=== PATIENT | male | born 1970 | race Caucasian/White ===

== ENCOUNTER 2017-08-16 22:55 | Emergency (ER) | payer OTHER ==
[~2017-08-16] VITALS: Ht 172.7 cm; Wt 72.0 kg
[~2017-08-16 22:55] MED LIST: DICL50TA3 PO; METH750T2 PO
[2017-08-16 23:26] VITALS: BP 144/85; PULSE 74; RESP 18; TEMP 97.4; O2SAT 98
[2017-08-17] MEDS ORDERED: ceFAZolin 2 GM PREMIX 50 ML IV ONE
[2017-08-17] MEDS ORDERED: DIPHTH/TETANUS/ACEL PERTUSSIS (BOOSTER) 0.5 ML VIAL/PFS IM ONE
[2017-08-17] MEDS ORDERED: PROPARACAINE HCL 0.5% OPHT SOLN 15 ML BTL EACH EYE ONE
--- NOTE | 2017-08-17 00:19 | PD ---
HPI Chief Complaint: Eye Problems/Injury Time Seen by Provider: 23:54 Travel History International Travel<30 days: No Contact w/Intl Traveler<30days: No Traveled to known affect area: No History of Present Illness HPI The patient is a 47 year old male who presents to the [facility] emergency department with a history of right eye pain that began approximately an hour prior to arrival. The patient reports that he was digging around in a storage unit when a car antenna hit him in the eye. The patient reports that the current tendon was in a box and bent over. He reports that the other box was moved releasing the car antenna which swung back into his right eye. The patient reports having no vision in the center of his visual field and only light surrounding the darkness in the center of his visual field. The patient has reading glasses on. The patient also has contacts in. The patient reports that his last eye examination was done at [facility] approximately a year ago. He denies having an panel cutter. Patient is unsure when his tetanus was last updated. He denies having any thick drainage from his eye. He reports that initially there was some tearing. He reports that there is pain in the eye. He denies having any other injuries. On review of systems otherwise, the patient denies having any known recent fevers, cough or congestion, neck pain, chest pain, shortness of breath, abdominal pain, vomiting , diarrhea, urinary symptoms, or neurologic symptoms. PFSH Past Medical History Narrative Medical The patient's past medical history is reportedly none. Medical History: Denies Significant Hx Diminished Hearing: No Tetanus Vaccination: < 5 Years Influenza Vaccination: No Past Surgical History Narrative Surgical The patient's past surgical history is reportedly none. Surgical History: No Previous Surgery Social History Alcohol Use: No Tobacco Use: No Substance Use: No Allergies-Medications (Allergen,Severity, Reaction): Coded Allergies: No Known Allergies (Verified Allergy, Unknown, 08/17/17) Reported Meds & Prescriptions Reported Meds & Active Scripts Active Hydrocodone-Acetaminophen 5-325 mg Tab 1 Tab PO Q6H PRN Tobrex Opth Drops (Tobramycin Opth Drops) 0.3 % Soln 2 Drop RIGHT EYE Q4H Methocarbamol 750 Mg Tab 750 Mg PO QID 2 tabs QID for 2 days, then 1 tab QID thereafter Diclofenac Sodium Dr (Diclofenac Sodium) 50 Mg Tab 50 Mg PO BID Review of Systems Except as stated in HPI: all other systems reviewed are Neg General / Constitutional: No: Fever Eyes: Positive: Pain, Blind Spots, Visual changes HENT: No: Headaches Cardiovascular: No: Chest Pain or Discomfort Respiratory: No: Shortness of Breath Gastrointestinal: No: Nausea, Vomiting, Diarrhea, Abdominal Pain Genitourinary: No: Dysuria Musculoskeletal: No: Pain Skin: No Rash Neurologic: No: Weakness Psychiatric: No: Depression Endocrine: No: Polydipsia Hematologic/Lymphatic: No: Easy Bruising Physical Exam Narrative General: The patient is a well-developed well-nourished male in no acute distress. Head and Neck exam: Head is normocephalic atraumatic. Eyes: EOMI, pupils are equal round and reactive to light. The patient is noted to have a subconjunctival hemorrhage along the temporal aspect of the right eye. The patient is noted to have sensitivity of light to the right eye. The patient has contacts in place in bilateral eyes which she was able to remove. The patient had a funduscopic examination done and no obvious retinal hemorrhage or tear was visualized. Fluorescein testing was done of the eye after the patient had anesthetic ophthalmic solution applied in the right eye. The patient was noted to have a corneal abrasion in the center of the area where the subconjunctival hemorrhage is noted. The patient's eye pressure on the right was noted to be slightly elevated at 27. Nose: Midline septum with pink mucous membranes Mouth: Dentition unremarkable. Moist mucus membranes. Posterior oropharynx is not erythematous. No tonsillar hypertrophy. Uvula midline. Airway patent. Neck: No palpable lymphadenopathy. No nuchal rigidity. No thyromegaly. Cardiovascular: Regular rate and rhythm without murmurs, gallops, or rubs. No pulse deficit to the extremities. Lungs: Clear to auscultation bilaterally. No wheezes, rhonchi, or rales. Abdomen: Soft, without tenderness to palpation in all 4 quadrants of the abdomen. No guarding, rebound, or rigidity. Negative Alderson sign. Extremities: No clubbing, cyanosis, or edema. 2+ pulses in all 4 extremities. Back: No spinous process tenderness to palpation. No costovertebral angle tenderness to palpation. Neurologic Exam: Cranial nerves 2-12 were intact on exam. Strength is 5/5 in all 4 extremities. No sensory deficits noted. No dysdiadochokinesis. Good finger to nose and Heel to stoner bilaterally. Skin Exam: No rash noted. Intact skin that is warm and dry. Data Data Last Documented VS Vital Signs Date Time Temp Pulse Resp B/P (MAP) Pulse Ox O2 Delivery O2 Flow Rate FiO2 08/17/17 00:55 15 08/16/17 23:26 97.4 74 144/85 (104) 98 Orders Orders Complete Blood Count With Diff (08/16/17 23:55) Basic Metabolic Panel (Bmp) (08/16/17 23:55) Prothrombin Time / Inr (Pt) (08/16/17 23:55) Act Partial Throm Time (Ptt) (08/16/17 23:55) Iv Access Insert/Monitor (08/16/17 23:55) Ecg Monitoring (08/16/17 23:55) Oximetry (08/16/17 23:55) Cefazolin 2 Gm Premix (Ancef 2 Gm Premix (08/17/17 00:00) Fxnq-Wmr-Vfidwi (Booster) Inj (Boostrix (08/17/17 00:00) Proparacaine 0.5% Opth Soln (Alcaine 0.5 (08/17/17 00:00) Ct Facial Bones W/O Iv Cont (08/17/17 00:19) Morphine Inj (Morphine Inj) (08/17/17 01:15) Ondansetron Inj (Zofran Inj) (08/17/17 01:15) Labs Laboratory Tests Test 08/17/17 00:26 White Blood Count 8.3 TH/MM3 Red Blood Count 5.46 MIL/MM3 Hemoglobin 16.3 GM/DL Hematocrit 47.0 % Mean Corpuscular Volume 86.0 FL Mean Corpuscular Hemoglobin 29.8 PG Mean Corpuscular Hemoglobin Concent 34.7 % Red Cell Distribution Width 12.4 % Platelet Count 221 TH/MM3 Mean Platelet Volume 8.8 FL Neutrophils (%) (Auto) 62.4 % Lymphocytes (%) (Auto) 23.0 % Monocytes (%) (Auto) 12.4 % Eosinophils (%) (Auto) 1.7 % Basophils (%) (Auto) 0.5 % Neutrophils # (Auto) 5.2 TH/MM3 Lymphocytes # (Auto) 1.9 TH/MM3 Monocytes # (Auto) 1.0 TH/MM3 Eosinophils # (Auto) 0.1 TH/MM3 Basophils # (Auto) 0.0 TH/MM3 CBC Comment DIFF FINAL Differential Comment Prothrombin Time 10.7 SEC Prothromb Time International Ratio 1.1 RATIO Activated Partial Thromboplast Time 23.6 SEC Blood Urea Nitrogen 12 MG/DL Creatinine 1.09 MG/DL Random Glucose 96 MG/DL Calcium Level 9.0 MG/DL Sodium Level 140 MEQ/L Potassium Level 4.1 MEQ/L Chloride Level 104 MEQ/L Carbon Dioxide Level 28.9 MEQ/L Anion Gap 7 MEQ/L Estimat Glomerular Filtration Rate 72 ML/MIN MDM Medical Decision Making Medical Screen Exam Complete: Yes Emergency Medical Condition: Yes Medical Record Reviewed: Yes Interpretation(s) Last Impressions Maxillofacial CT 08/17/17 0019 Signed Impressions: Service Date/Time: Thursday, August 17, 2017 00:19 - CONCLUSION: Negative exam. No fractures. Both globes are intact. Reed Paul MD Differential Diagnosis Globe rupture, versus orbital fracture, versus retinal hemorrhage, versus retinal tear, versus corneal abrasion, versus subconjunctival hemorrhage, versus hyphema, versus traumatic optic neuropathy. Narrative Course During the course of the patient's emergency department visit, the patient's history, examination, and differential diagnosis were reviewed with the patient. The patient was placed on a monitor and storage bin tender with oximetry and frequent blood pressure monitoring. The patient had IV access obtained and blood work sent for analysis. The patient was able to remove his contacts. The patient was initially provided morphine for pain, Zofran for nausea. The patient's tetanus was updated. The patient was given Ancef 2 g IV. The patient's laboratory studies were reviewed and remarkable for a white count of 8.3, hemoglobin 16.3, platelets 221 with 12.4- monocytes, basic metabolic profile is unremarkable. PT 10.7, PTT 23.6. Radiology studies were reviewed and remarkable for CT scan of the facial bones showing that the facial bones are intact, globes are intact. No acute abnormality noted. The patient's case including history, pertinent physical examination findings, and laboratory studies were discussed with Dr. Martínez, the panel cutter at [facility]. He recommended that the patient have a complete eye examination by an panel cutter in the morning. He explained that the patient could follow-up with him in his office. The patient is instructed regarding the necessity of following up with an panel cutter for a complete dilated eye exam in the morning. Dr. Martínez recommended that the patient call his office in the morning to schedule an appointment for tomorrow morning. The office number is . The patient is also instructed that he if he prefers to follow-up with a closer panel cutter again, he should follow-up in the morning. The patient is instructed to avoid wearing his contacts until cleared the panel cutter. The patient is resting comfortably and feels better, is alert and in no distress. The patient's results and examination findings were discussed with the patient. The repeat examination is unremarkable and benign. The history, exam, diagnostic testing, and current condition do not suggest any significant pathology to warrant further testing, continued ED treatment, admission, or surgical evaluation at this point. The vital signs have been stable. The patient does not have uncontrollable pain, intractable vomiting, or other significant symptoms. The patient's condition is stable and appropriate for discharge. The patient is instructed that if he develops any new or worsening signs or symptoms, he should report back immediately to the emergency department. The patient will pursue further outpatient evaluation with a primary care physician or other designated or consulting physician as indicated in the discharge instructions. The patient expressed understanding and was agreeable with this plan. Physician Communication Physician Communication The patient's case including history, pertinent physical examination findings, and laboratory studies were discussed with Dr. Martínez, the panel cutter on- call at [facility]. Please see ED course. Diagnosis Primary Impression: Vision loss Additional Impressions: Right eye trauma Qualified Codes: S05.91XA - Unspecified injury of right eye and orbit, initial encounter Corneal abrasion Qualified Codes: S05.01XA - Injury of conjunctiva and corneal abrasion without foreign body, right eye, initial encounter Subconjunctival hemorrhage Qualified Codes: H11.31 - Conjunctival hemorrhage, right eye Referrals: [facility] Tester 1 day Patient Instructions: Corneal Abrasion (ED), General Instructions, Subconjunctival Hemorrhage (ED) Additional Instructions: The patient is instructed regarding the necessity of following up with an panel cutter for complete dilated eye exam in the morning. I spoke to the panel cutter certified residential medication aide at [facility], Dr. Martínez. He explained that the patient could follow-up with him in his office. He recommends that he call his office in the morning to schedule an appointment for tomorrow morning. The office number is [phone]. The patient is also instructed that he if he prefers to follow-up with a closer panel cutter again, he should follow-up in the morning. The patient is instructed to avoid wearing his contacts until he is cleared by the panel cutter. Med/Other Pt SpecificInfo: Prescription(s) given Scripts Hydrocodone-Acetaminophen (Hydrocodone-Acetaminophen) 5-325 mg Tab 1 TAB PO Q6H Y for PAIN, #12 TAB 0 Refills Prov: Moriah Valles MD 08/17/17 Tobramycin Opth Drops (Tobrex Opth Drops) 0.3 % Soln 2 DROP RIGHT EYE Q4H for Infection, #1 BOTTLE 0 Refills Prov: Moriah Valles MD 08/17/17 Disposition: 01 DISCHARGE HOME Condition: Stable Moriah Valles MD Aug 17, 2017 00:19
[2017-08-17 00:41] LABS: AUTOMATED NEUTROPHIL # 5.2 TH/MM3 (1.8-7.7); BASOPHIL % 0.5 % (0.0-2.0); EOSINOPHIL # 0.1 TH/MM3 (0-0.4); EOSINOPHIL % 1.7 % (0.0-4.0); HEMOGLOBIN 16.3 GM/DL (13.0-17.0); LYMPHOCYTE # 1.9 TH/MM3 (1.0-4.8); MEAN CORPUSCULAR HEMOGLOBIN 29.8 PG (27.0-34.0); MEAN CORPUSCULAR HGB CONC 34.7 % (32.0-36.0); MEAN PLATELET VOLUME 8.8 FL (7.0-11.0); MONO % 12.4 % (0.0-8.0); NEUT % 62.4 % (16.0-70.0); PLATELET COUNT 221 TH/MM3 (150-450); RED BLOOD COUNT 5.46 MIL/MM3 (4.50-5.90); RED CELL DISTRIBUTION WIDTH 12.4 % (11.6-17.2); WHITE BLOOD COUNT 8.3 TH/MM3 (4.0-11.0)
[2017-08-17 00:44] LABS: BICARBONATE 28.9 MEQ/L (21.0-32.0); CREATININE 1.09 MG/DL (0.60-1.30)
[2017-08-17 00:50] LABS: INTERNATIONAL NORMALIZED RATIO 1.1 RATIO; PROTHROMBIN TIME - PATIENT 10.7 SEC (9.8-11.6)
--- NOTE | 2017-08-17 01:00 | RADRPT ---
EXAM DATE/TIME: 08/17/2017 00:19 [place] COMPARISON: No previous studies available for comparison. INDICATIONS : Trauma. Poked in right eye by car antenna RADIATION DOSE: 29.28 CTDIvol (mGy) MEDICAL HISTORY : None SURGICAL HISTORY : None. ENCOUNTER: Initial ACUITY: 1 day PAIN SCORE: 8/10 LOCATION: Right facial eye TECHNIQUE: Volumetric scanning of the facial bones was performed. Using automated exposure control and adjustme nt of the mA and/or kV according to patient size, radiation dose was kept as low as reasonably achiev able to obtain optimal diagnostic quality images. DICOM format image data is available electronicall y for review and comparison. FINDINGS: ORBITS: The orbital and infraorbital osseous structures are intact. The retroconal structures have a normal configuration. No radiopaque foreign bodies are seen. NASAL BONE: The nasal bone and maxillary spine are intact ZYGOMATIC ARCHES: Symmetric without evidence of fracture. SINUSES: The maxillary, ethmoid and frontal sinuses are intact. No air-fluid levels seen. NASAL CAVITY: The nasal septum is intact and midline. The lacrimal ducts are intact. SOFT TISSUES: No radiopaque foreign bodies seen. No soft-tissue swelling is seen. INTRACRANIAL: No intracranial air seen. CRIBIFORM PLATE: Grossly intact. CONCLUSION: Negative exam. No fractures. Both globes are intact. Reed Paul MD on August 17, 2017 at 0:56 Board Certified Radiologist. This report was verified electronically.
[2017-08-17] MEDS ORDERED: ONDANSETRON HCL 4 MG/2 ML VIAL IV PUSH ONE (01:15)
[2017-08-17] MEDS ORDERED: MORPHINE SULFATE 4 MG/ML INJ IV PUSH ONE (01:15)
[2017-08-17] MEDS ORDERED: HYDR-3516 PO (02:16)
[2017-08-17] MEDS ORDERED: TOBR0.3S RIGHT EYE (02:16)
== END 2017-08-17 03:06 | disposition home or self-care (01) ==
LOC: NEPC 22:55
DX: S05.91XA Unspecified injury of right eye and orbit, initial encounter (principal); S05.01XA Injury of conjunctiva and corneal abrasion without foreign body, right eye, initial encounter; H11.31 Conjunctival hemorrhage, right eye; W22.8XXA Striking against or struck by other objects, initial encounter; Z79.899 Other long term (current) drug therapy
CPT/HCPCS: 70486; 80048; 85025; 85610; 85730; 96374; 96375; 99284; J0690; J2270; J2405